=== PATIENT | female | born 1995 | race African-American/Black ===

== ENCOUNTER → 2022-05-17 12:34 | Outpatient (BNVA) | payer OTHER, SELFPAY | PROVIDERS: PCP Internal Medicine; Visit Provider Student in an Organized Health Care Education/Training Program | DX: M19.90 Unspecified osteoarthritis, unspecified site (principal) | CPT/HCPCS: 99202 ==

== ENCOUNTER 2022-11-04 11:45 | Outpatient (REF) | payer OTHER, SELFPAY ==
[2022-11-04 12:07] LABS: MANUAL DIFF FLAG NO
[2022-11-04 13:19] LABS: Basophils Percent Auto 0.3 % (0-2); Eosinophils Absolute Auto 0.1 X10*3/uL (0.0-0.4); Eosinophils Percent Auto 1.4 % (0-4); Hematocrit 36.9 % (37.0-47.0); Hemoglobin 13.5 g/dl (12.0-16.0); Imm Gran Abs Auto 0.03 X10*3/uL (0.00-0.03); Imm Gran Pct Auto 0.3 % (0.0-0.4); Lymphocytes Absolute Auto 1.1 X10*3/uL (1.2-4.9); Lymphocytes Percent Auto 11.7 % (20-40); Mean Corpuscular HGB Conc 36.6 g/dl (31.0-35.0); Mean Corpuscular Hemoglobin 31.7 pg (27.0-33.0); Mean Corpuscular Volume 86.6 fL (80.0-98.0); Mean Platelet Volume 11.1 fL (9.4-12.3); Monocytes Absolute Auto 0.5 X10*3/uL (0.1-1.2); Monocytes Percent Auto 5.5 % (2-11); Neutrophils Absolute Auto 7.4 x10*3/uL (2.0-8.3); Neutrophils Percent Auto 80.8 % (45-73); Platelet Count 182 X10*3/uL (160-400); Red Blood Count 4.26 X10*6/uL (4.20-5.50); Red Cell Distribution Width 11.9 % (11.0-16.0); White Blood Count 9.2 X10*3/uL (4.8-10.8)
[2022-11-04 14:04] LABS: Alanine Aminotransferase 9 U/L (0-31); Albumin Level 4.2 g/dL (3.5-5.0); Alkaline Phosphatase 32 U/L (39-117); Anion Gap 14 (12-20); Aspartate Amino Transferase 13 U/L (5-31); Bilirubin Total 0.7 mg/dL (0.0-1.0); Blood Urea Nitrogen 7 mg/dL (9-16); C Reactive Protein 0.34 mg/dL (< or = 0.50); Calcium 9.6 mg/dL (8.4-10.2); Carbon Dioxide 21 mmol/L (22-29); Chloride 105 mmol/L (96-108); Estimated Glomerular Filt Rate > 60; Glucose Random 73 mg/dL (60-115); Potassium 3.6 mmol/L (3.3-5.1); Sodium 136 mmol/L (135-145)
[2022-11-04 14:06] LABS: Rheumatoid Factor < 13.0 IU/mL (<15.0)
[2022-11-04 14:09] LABS: Erythrocyte Sedimentation Rate 11 MM/HR (0-20)
[2022-11-05 05:20] LABS: HBS Num1 1.36 mIU/mL (0-7.99); HBc Num1 0.36 S/CO (0.00-0.79); HBsAGNum1 0.39 S/CO (0.00-0.99); Hepatitis A Antibody IgM 0.15 Index (0-0.79); Hepatitis B Core Antibody Nonreactive (Nonreactive); Hepatitis B Surface Antigen Negative (Negative); ~HepC Num1 0.07 S/CO (0.00-0.79); ~Hepatitis A Antibody IgM Nonreactive (Nonreactive); ~Hepatitis B Surface Antibody NONREACTIVE (Nonreactive); ~Hepatitis C Antibody Nonreactive (Nonreactive)
[2022-11-05 19:04] LABS: Complement C3 128 mg/dL (83-193)
[2022-11-06 12:48] LABS: Prot Elec - Albumin 4.5 g/dL (3.8-4.8); Prot Elec - Alpha1 0.4 g/dL (0.2-0.3); Prot Elec - Alpha2 0.6 g/dL (0.5-0.9); Prot Elec - Beta 1 0.4 g/dL (0.4-0.6); Prot Elec - Beta 2 0.3 g/dL (0.2-0.5); Prot Elec - Gamma 0.9 g/dL (0.8-1.7); Prot Elec - Total Protein 7.1 g/dL (6.1-8.1)
[2022-11-06 13:19] LABS: Cyclic Citrullinated Peptide <16 UNITS
[2022-11-06 13:28] LABS: Anti DNA DS Antibody 1 IU/mL; Antibody to SS-A Antigen <1.0 NEG AI (<1.0 NEG); Antibody to SS-B Antigen <1.0 NEG AI (<1.0 NEG); SM/Ribonucleoprotein Ab <1.0 NEG AI (<1.0 NEG); Smith Protein <1.0 NEG AI (<1.0 NEG)
[2022-11-06 18:08] LABS: Cardiolipin IgG Ab <2.0 GPL-U/mL; Cardiolipin IgM Ab <2.0 MPL-U/mL
[2022-11-06 19:38] LABS: TS Negative Control Passed; TS Panel A 1; TS Panel B 2; TS Positive Control Passed; TSpotTB Negative (Negative)
[2022-11-07 09:09] LABS: IgA 132 mg/dL (47-310); IgG 1066 mg/dL (600-1640); IgM 83 mg/dL (50-300)
[2022-11-07 10:33] LABS: Anti Nuclear Antibody Screen NEGATIVE (NEGATIVE)
[2022-11-09 17:38] LABS: PTT (LAC) Screen 35 sec (<=40)
[2022-11-09 18:28] LABS: DNAds, Crithidia Antibody Negative (Negative)
[2022-11-11 00:58] LABS: Beta-2 Glycoprotein IgA <2.0 U/mL (<20.0); Beta-2 Glycoprotein IgG <2.0 U/mL (<20.0); Beta-2 Glycoprotein IgM <2.0 U/mL (<20.0)
== END 2022-11-04 11:46 | disposition home or self-care (01) ==
LOC: HO.LAB 11:45
PROVIDERS: Visit Provider Student in an Organized Health Care Education/Training Program
DX: Z11.59 Encounter for screening for other viral diseases (principal); Z11.7 Encounter for testing for latent tuberculosis infection; M32.9 Systemic lupus erythematosus, unspecified; D68.61 Antiphospholipid syndrome; M25.541 Pain in joints of right hand; M06.9 Rheumatoid arthritis, unspecified
CPT/HCPCS: 36415; 80053; 82784; 84165; 85025; 85597; 85598; 85613; 85652; 85730; 86038; 86140; 86146; 86147; 86160; 86200; 86225; 86235; 86255; 86334; 86431; 86481; 86704; 86706; 86709; 86803; 87340

== ENCOUNTER 2022-11-07 09:40 | Outpatient (AMB) | payer OTHER, SELFPAY ==
--- NOTE | 2022-11-07 09:49 | A.OFFVIS_ITS ---
Intake Vital Signs 11/07/22 09:51 Height 5 ft 3 in Weight 134 lb 7.712 oz BMI 23.8 BP 112/60 Blood Pressure Location Lt brachial Position Sitting Pulse 71 Pulse Source Pulse Oximeter Temp 97.2 F Temp Source Skin Pulse Oximetry (%) 99 Intake Visit Reasons: Elev RF/joint pain Intake Note: Pt seen today for follow up and test results. Finished prednsione taper, states it didn't really work. Still had pain States she did bloodwork but not xrays, as she is expecting. She is 12 weeks Card Doffer Required: No Accompanied by: Self / Same As Patient Allergies Seasonal Allergies Allergy (Mild, Verified 11/07/22 10:00) Unknown sulfamethoxazole [From Bactrim] Allergy (Mild, Verified 11/07/22 10:00) Unknown trimethoprim [From Bactrim] Allergy (Mild, Verified 11/07/22 10:00) Unknown Medication List - Last Reconciled 11/07/22 by Doyle Carlisle MD acetaminophen (Tylenol Extra Strength) 1,000 mg PO Q6H PRN aspirin (Adult Low Dose Aspirin) 81 mg PO DAILY HPI HPI Comments History of Present Illness Details Patient returns for follow-up after completion of her blood work. She states the Medrol tapered did not really work. She states that she continues to have pain in her fingers and toes. States that she is 12 weeks . Initial history: This is a 26-year-old female who presents for evaluation of diffuse joint pain. The condition started around 6 months ago with pain in multiple joints including her toes, knees, wrists, fingers, elbows, hips bilaterally associated with morning stiffness that improves after 1 hour but lasts all day. She feels that her hair if thinning. While showering she sees large clumps of hair in the shower. She denies any skin rashes. No history of DVT/PE. No history of Raynaud's. No photosensitivity. No blood or froth in urine. Patient stopped working since February as she could not continue working at [employer]. Patient took ibuprofen and Tylenol, she feels that ibuprofen did not help. Tylenol helps a little more. She was prescribed a prednisone taper starting at 10 mg by her PCP, she stated that it did not help and caused blurry vision. [facility] Medical History Numbness Acute insomnia Depression Seasonal allergies Vulvar abscess Surgical History No history of previous surgery Family History Mother Fibromyalgia Father No problems noted. Maternal Aunt Osteoporosis Other Family history of arthritis Social History Alcohol intake: current Alcohol intake frequency: a few times a month Patient Tobacco Use Status: Never used Tobacco Substance Use Type: Marijuana Current occupational status: unemployed Female Reproductive History Menstrual Total pregnancies: 2 Ab induced: 1 Review of Systems Musc Reports arthralgias, Reports joint swelling, Reports limited range of motion and Reports stiffness Physical Exam Vital Signs: Last Vital Signs Temp 97.2 F 11/07/22 09:51 Pulse 71 11/07/22 09:51 BP 112/60 11/07/22 09:51 Pulse Ox 99 11/07/22 09:51 BMI result Body Mass Index 23.8 Const General: cooperative, healthy appearing and comfortable Nutritional Appearance: average body habitus Orientation/consciousness: patient oriented x3 Limitations: no limitations HEENT Head: Yes normocephalic and Yes atraumatic Mouth: moist mucous membranes Resp Effort & Inspection: normal respiratory effort and able to speak in complete sentences Auscultation: clear to auscultation bilaterally Cardio Rate: regular rate Rhythm: regular rhythm Neuro General: patient oriented x3 Extrem Other: Right 5th MCP swelling and tenderness Right 5th PIP tenderness without swelling Left 5th MCPs tenderness with no swelling Left 5th PIP tenderness Normal nailfold capillaroscopy No elbow pain with flexion and extension Bilateral diffuse MTP tenderness Results Reviewed Results Reviewed: Labs 11/2021? CBC unremarkable? CMP unremarkable except for alk phos 33 (42-121) RF 16 (<15) C3/C4 normal? CARSON/SSA/SSB/dsDNA negative ESR normal Assessment & Plan Assessment & Plan (1) Inflammatory arthritis: Code(s): M19.90 - Unspecified osteoarthritis, unspecified site Plan: This is a 26-year-old female presents for evaluation of inflammatory arthritis. On exam patient has multiple tender small joints, symmetrical without significant swelling. According to patient her symptoms did not respond to prednisone or Medrol taper however she was not examined while taking these meds. She has a negative RF/CCP/SSa/SSb/DsDNA/C3/C4 she has negative sub serologies. Her CARSON remains pending. Patient is currently 12 weeks , will avoid x-rays. Will order bilateral ankle and foot ultrasound to evaluate for synovitis. Her symptoms are quite mild and there is no compelling indication to start DMARDs especially that she is . Advised patient to take Tylenol Arthritis as needed for pain. Will await her CARSON result and ultrasound and consider starting hydroxychloroquine. I printed patient's labs and asked her to take it to her OBGYN Follow-up in 3 months Plan I spent 25 minutes reviewing patient's chart, evaluating patient, ordering diagnostic workup, counseling patient and documenting in the chart Orders: Orders US extremity nonvascular Today M19.90 - Unspecified osteoarthritis, unspecified site Coding Level of Care Code Est Pt Level 4 (95018) Diagnoses Inflammatory arthritis M19.90
[2022-11-07 09:51] VITALS: BP 112/60; PULSE 71; TEMP 36.2; O2SAT 99; BMI 23.8
== END 2022-11-07 10:22 | disposition home or self-care (01) ==
PROVIDERS: PCP Internal Medicine; Visit Provider Student in an Organized Health Care Education/Training Program
DX: M19.90 Unspecified osteoarthritis, unspecified site (principal)
CPT/HCPCS: 99214

== ENCOUNTER → 2022-11-07 09:40 | Outpatient (BNVA) | payer OTHER, SELFPAY | PROVIDERS: PCP Internal Medicine; Visit Provider Student in an Organized Health Care Education/Training Program | DX: M19.90 Unspecified osteoarthritis, unspecified site (principal) | CPT/HCPCS: 99212 ==